=== PATIENT | female | born 1980 | race Caucasian/White ===

== ENCOUNTER → 2020-06-16 | Outpatient (CLI) | payer OTHER ==
[2020-06-16 10:52] LABS: ABSOLUTE NEUTROPHILS 4.3 thou/uL (1.4-8.2); BASOPHILS 0.8 % (0.0-2.0); EOSINOPHILS 3.4 % (0.0-3.0); HEMATOCRIT 43.3 % (37.0-47.0); HEMOGLOBIN 14.8 gm/dL (12.0-15.0); LYMPHOCYTES 21.8 % (24.0-44.0); MCH 33.7 pg (26.0-34.0); MCHC 34.1 g/dL (28.0-37.0); MCV 98.9 fL (80.0-100.0); MONOCYTES 11.9 % (1.0-8.0); PLATELET COUNT 225 thou/uL (150-400); POLYS 62.1 % (36.0-66.0); RBC 4.38 mil/uL (4.20-5.00); RDW 13.1 % (10.5-14.5); WBC 6.9 thou/uL (4.0-11.0)
[2020-06-16 10:59] LABS: CALCIUM 9.6 mg/dL (8.5-10.1); CREATININE 0.8 mg/dL (0.6-1.0); POTASSIUM 4.7 mmol/L (3.5-5.1)
[2020-06-16 11:05] LABS: ALBUMIN 4.2 g/dL (3.4-5.0); TOTAL BILIRUBIN 0.6 mg/dL (0.2-1.0); TOTAL PROTEIN 7.8 g/dL (6.4-8.2)
[2020-06-16 11:09] LABS: APTT 31.7 Seconds (24.5-32.8); PROTIME 9.8 Seconds (9.3-11.4)
[2020-06-16 14:13] LABS: CSF CLARITY CLEAR; CSF COLOR COLORLESS
[2020-06-16 15:06] LABS: CSF RBC 8 /mm3; CSF WBC 1 /mm3 (0-10)
== END | disposition home or self-care (01) ==
LOC: RAD 09:20
PROVIDERS: Radiology Vascular & Interventional Radiology; ATTEND Family Medicine
DX: R20.2 Paresthesia of skin (principal); Z79.899 Other long term (current) drug therapy; Z88.8 Allergy status to other drugs, medicaments and biological substances; Z98.890 Other specified postprocedural states